=== PATIENT | male | born 1995 | race American Indian/Alaskan Native ===

== ENCOUNTER 2017-05-14 22:09 | Emergency (ER) | payer OTHER ==
[2017-05-15 00:56] VITALS: BP 133/71
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
[2017-05-15] MEDS ORDERED: MOTRIN PO ONE (01:13)
[2017-05-15] MEDS ORDERED: TYLENOL PO ONE (01:13)
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
== END 2017-05-15 01:35 | disposition home or self-care (01) ==
LOC: ED 22:09
DX: M54.89 Other dorsalgia (principal); R51 Headache; F17.200 Nicotine dependence, unspecified, uncomplicated; V49.49XA Driver injured in collision with other motor vehicles in traffic accident, initial encounter; Y93.89 Activity, other specified; Y99.8 Other external cause status; Y92.411 Interstate highway as the place of occurrence of the external cause
CPT/HCPCS: 71020

== ENCOUNTER 2018-12-08 22:29 | Emergency (ER) | payer OTHER ==
[2018-12-08 22:44] VITALS: BP 144/90
[2018-12-09 01:13] LABS: Bilirubin,Urine NEG (Negative); Blood,Urine NEG (Negative); Color,Urine Yellow (Yellow); Mucus,Urine 1+ /HPF; Protein,Urine <15 mg/dL mg/dL (Negative); Urobilinogen,Urine < 2.0 mg/dL (<2.0)
--- NOTE | 2018-12-09 01:22 | Emergency Department Report ---
ED Male HPI - General Chief complaint: Urogenital-Male Stated complaint: BURNING IN URINATION/BACK PAIN Time Seen by Provider: 12/09/18 00:23 Source: patient Mode of arrival: Ambulatory Limitations: No Limitations - History of Present Illness Initial comments: Patient is a 22-year-old male presents to ED complaining of pain with urination as well as frequent urination. Patient denies testicular pain or swelling, penile discharge or lesions. He denies fevers/chills/nausea vomiting/pelvic pain MD Complaint: dysuria - Related Data Home Medications Medication Instructions Recorded Confirmed Last Taken QUEtiapine [SEROquel] 200 mg PO QHS 03/29/15 03/29/15 Unknown Previous Rx's Medication Instructions Recorded Last Taken Type Sulfamethoxazole/Trimethoprim 1 each PO BID #14 tablet 06/13/15 Unknown Rx [Bactrim DS TAB] traMADol [Ultram] 50 mg PO Q6HR PRN #14 tablet 06/13/15 Unknown Rx Ibuprofen [Motrin] 600 mg PO Q8H PRN #30 tablet 05/15/17 Unknown Rx Methocarbamol [Robaxin TAB] 1,500 mg PO TID PRN #30 tab 05/15/17 Unknown Rx Azithromycin [Zithromax] 1 gm PO ONCE #1 packet 12/09/18 Unknown Rx Ciprofloxacin HCl [Ciprofloxacin 500 mg PO Q12HR #14 tab 12/09/18 Unknown Rx TAB] Ibuprofen [Motrin 800 MG tab] 800 mg PO Q8HR PRN #30 tablet 12/09/18 Unknown Rx Phenazopyridine [Pyridium] 200 mg PO BID #10 tab 12/09/18 Unknown Rx Allergies Allergy/AdvReac Type Severity Reaction Status Date / Time No Known Allergies Allergy Unverified 03/29/15 21:43 ED Review of Systems ROS: Stated complaint: BURNING IN URINATION/BACK PAIN Other details as noted in HPI Comment: All other systems reviewed and negative ED Past Medical Hx - Social History Smoking Status: Never Smoker Substance Use Type: None - Medications Home Medications: Home Medications Medication Instructions Recorded Confirmed Last Taken Type QUEtiapine [SEROquel] 200 mg PO QHS 03/29/15 03/29/15 Unknown History Sulfamethoxazole/Trimethoprim 1 each PO BID #14 tablet 06/13/15 Unknown Rx [Bactrim DS TAB] traMADol [Ultram] 50 mg PO Q6HR PRN #14 tablet 06/13/15 Unknown Rx Ibuprofen [Motrin] 600 mg PO Q8H PRN #30 tablet 05/15/17 Unknown Rx Methocarbamol [Robaxin TAB] 1,500 mg PO TID PRN #30 tab 05/15/17 Unknown Rx Azithromycin [Zithromax] 1 gm PO ONCE #1 packet 12/09/18 Unknown Rx Ciprofloxacin HCl [Ciprofloxacin 500 mg PO Q12HR #14 tab 12/09/18 Unknown Rx TAB] Ibuprofen [Motrin 800 MG tab] 800 mg PO Q8HR PRN #30 tablet 12/09/18 Unknown Rx Phenazopyridine [Pyridium] 200 mg PO BID #10 tab 12/09/18 Unknown Rx ED Physical Exam - General Limitations: No Limitations General appearance: alert, in no apparent distress - Head Head exam: Present: atraumatic, normocephalic - Eye Eye exam: Present: normal appearance - ENT ENT exam: Present: mucous membranes moist - Neck Neck exam: Present: normal inspection - Respiratory Respiratory exam: Present: normal lung sounds bilaterally. Absent: respiratory distress - Cardiovascular Cardiovascular Exam: Present: regular rate, normal rhythm. Absent: systolic murmur, diastolic murmur, rubs, gallop - GI/Abdominal GI/Abdominal exam: Present: soft, normal bowel sounds. Absent: distended, tenderness, guarding, rebound - Rectal Rectal exam: Present: deferred - Extremities Exam Extremities exam: Present: normal inspection - Back Exam Back exam: Present: normal inspection - Neurological Exam Neurological exam: Present: alert, oriented X3 - Psychiatric Psychiatric exam: Present: normal affect, normal mood - Skin Skin exam: Present: warm, dry, intact, normal color. Absent: rash ED Course Vital Signs 12/08/18 12/09/18 22:42 02:15 Temperature 98.3 F Pulse Rate 88 55 L Respiratory 18 15 Rate Blood Pressure 144/90 O2 Sat by Pulse 99 98 Oximetry ED Medical Decision Making - Medical Decision Making 22-year-old male presents with urethritis. Patient was treated for back pain in the ED. Rocephin was given in ED as well. Vital signs are normal. Patient is in no acute distress. Patient was sent home with azithromycin, Cipro and pain medicine. Discussed the patient to follow up with her primary care physician. Critical care attestation.: If time is entered above; I have spent that time in minutes in the direct care of this critically ill patient, excluding procedure time. ED Disposition Clinical Impression: Urethritis Disposition: DC- TO HOME OR SELFCARE Is pt being admited?: No Does the pt Need Aspirin: No Condition: Stable Instructions: Nonspecific Urethritis in Men (ED), Back Pain (ED) Additional Instructions: Make sure to follow up with the primary care physician as discussed. Take all your medications as you've been prescribed. If you have any worsening symptoms or develop new symptoms please return to ED immediately. Prescriptions: Ciprofloxacin HCl [Ciprofloxacin TAB] 500 mg PO Q12HR #14 tab Ibuprofen [Motrin 800 MG tab] 800 mg PO Q8HR PRN #30 tablet PRN Reason: Pain Phenazopyridine [Pyridium] 200 mg PO BID #10 tab Azithromycin [Zithromax] 1 gm PO ONCE #1 packet Referrals: RATNA TELLEZ MD [Primary Care Provider] - 3-5 Days Forms: STI Treatment and Prevention Time of Disposition: 01:35
[2018-12-09] MEDS ORDERED: XYLOCAINE 1% MPF 5 mL INFILTRATI ONE (01:36)
[2018-12-09] MEDS ORDERED: ROCEPHIN IM ONE (01:36)
[2018-12-09] MEDS ORDERED: FLEXERIL PO ONE (01:36)
[2018-12-09] MEDS ORDERED: IBUPROFEN PO ONE ×2 (01:36→01:38)
[2018-12-09] MEDS ORDERED: FLEXERIL ONE (01:38)
[2018-12-09] MEDS ORDERED: XYLOCAINE 1% MPF 5 mL ONE (01:38)
[2018-12-09] MEDS ORDERED: ROCEPHIN ONE (01:38)
== END 2018-12-09 02:15 | disposition home or self-care (01) ==
LOC: ED 22:29
DX: N34.2 Other urethritis (principal)
CPT/HCPCS: 81001; 96372; 99283; J0696

== ENCOUNTER 2019-12-11 15:30 | Emergency (ER) | payer OTHER ==
[2019-12-11 16:05] VITALS: BP 133/87
--- NOTE | 2019-12-11 18:18 | Emergency Department Report ---
Chief Complaint: Urogenital-Male Stated Complaint: IRRATATION WITH URNIATION Time Seen by Provider: 12/11/19 18:12 - HPI History of Present Illness: 23 y/o male comes in for penile irritation time 1 week. No fever or chills. No abd pain. Having unprotected intercourse. - Exam Vital Signs: Vital Signs 12/11/19 16:01 Temperature 98 F Pulse Rate 63 Respiratory 20 Rate Blood Pressure 133/87 O2 Sat by Pulse 100 Oximetry Physical Exam: Axo times 3 NAD non toxic ambulatory without difficulties MSE screening note: Focused history and physical exam performed. Due to findings the following was ordered: 23 y/o male comes in for penile irritation time 1 week. No fever or chills. No abd pain. Having unprotected intercourse. Referral to Health Department for full STD. ED Disposition for MSE Disposition: MED SCREENING EXAM-LEFT Is pt being admited?: No Does the pt Need Aspirin: No Condition: Stable Additional Instructions: Referral to Health Department for full STD. Referrals: [facility] [Outside] - 3-5 Days [facility] [Outside] - 3-5 Days [facility] [Outside] - 3-5 Days
== END 2019-12-11 18:17 | disposition left against medical advice (07) ==
LOC: ED 15:30
DX: R30.0 Dysuria (principal); Z53.21 Procedure and treatment not carried out due to patient leaving prior to being seen by health care provider